=== PATIENT | male | born 1965 | race Caucasian/White ===

== ENCOUNTER 2017-01-30 16:26 | Emergency (ER) | payer OTHER | END 2017-01-30 17:23 | disposition home or self-care (01) | LOC: ER 16:26 | DX: J06.9 Acute upper respiratory infection, unspecified (principal); J84.9 Interstitial pulmonary disease, unspecified; J44.9 Chronic obstructive pulmonary disease, unspecified; F41.9 Anxiety disorder, unspecified; E11.9 Type 2 diabetes mellitus without complications; I10 Essential (primary) hypertension; F17.210 Nicotine dependence, cigarettes, uncomplicated; Z79.899 Other long term (current) drug therapy | CPT/HCPCS: 71020; 99283; 99283-25 ==

== ENCOUNTER 2017-03-07 10:25 | Emergency (ER) | payer OTHER | END 2017-03-07 13:23 | disposition home or self-care (01) | LOC: ER 10:25 | DX: J18.9 Pneumonia, unspecified organism (principal); S22.32XA Fracture of one rib, left side, initial encounter for closed fracture; X50.3XXA Overexertion from repetitive movements, initial encounter; F20.9 Schizophrenia, unspecified; F31.9 Bipolar disorder, unspecified; Z79.899 Other long term (current) drug therapy | CPT/HCPCS: 71250; 99283; 99283-25 ==